=== PATIENT | female | born 1995 | race Caucasian/White ===

== ENCOUNTER → 2017-01-31 | Outpatient (REF) | payer OTHER | LOC: M SFHCLERA 21:07 | PROVIDERS: ATTEND Nurse Practitioner Family | DX: J02.9 Acute pharyngitis, unspecified (principal) ==

== ENCOUNTER → 2017-04-18 | Outpatient (CLI) | payer OTHER ==
--- NOTE | 2017-04-18 12:26 | REP ---
RIGHT SHOULDER, THREE VIEWS: HISTORY: Pain. There is no acute fracture or dislocation. There joint spaces are normal in appearance. IMPRESSION: There is no acute fracture or dislocation. Signed by Will Musa MD 04/18/2017 12:29 P
== END ==
LOC: M LRY 11:38
PROVIDERS: ATTEND Family Medicine
DX: N83.209 Unspecified ovarian cyst, unspecified side (principal); M25.511 Pain in right shoulder
CPT/HCPCS: 73030; G0463

== ENCOUNTER → 2017-04-25 | Outpatient (CLI) | payer OTHER ==
--- NOTE | 2017-04-25 16:00 | REP ---
Pelvic ultrasound including transabdominal, endovaginal and Doppler ultrasound assessment: There are no comparisons. The bladder is adequately distended. The a uterus is anteverted and normal size measuring 7.3 x 2.6 x 4.0 cm. The endometrium is not thickened measuring 7 mm. The ovaries are normal size. Right ovary measures 3.1 x 1.6 x 2.7 cm. Left ovary measures 3.4 x 2.3 x 2.2 cm. There is a follicle left ovary. There are no dominant ovarian masses or cysts. There is vascular flow in both ovaries with the Doppler resistive index of the intraparenchymal arteries on the right measuring 0.55 and on the left 0.66. There is no free fluid in the pelvis. Impression: Essentially negative pelvic ultrasound. Signed by Fortunato Mata MD 04/25/2017 03:51 P
== END ==
LOC: M LRY 14:07
PROVIDERS: ATTEND Family Medicine
DX: N83.209 Unspecified ovarian cyst, unspecified side (principal)

== ENCOUNTER → 2017-05-22 | Outpatient (REF) | payer OTHER | LOC: M SFHCLERA 15:44 | PROVIDERS: ATTEND Family Medicine | DX: M79.7 Fibromyalgia (principal) ==